=== PATIENT | female | born 1970 | race Caucasian/White ===

== ENCOUNTER → 2016-08-25 | Outpatient (REF) | payer OTHER ==
[~2016-08-25] MED LIST: /DULO30CA PO; /QUET10TA OR; /VERA40TA; ALPR0.5T3 PO; AMBI6.25 PO; ANTA500C PO; ASPI81TA83; BACL10TA2 PO; CALC1CAP8 PO; CALCTAB22; CIPR500T19 PO; COLA100C2; DIVA500T9 PO; EFFE150C; EFFE150C OR; EXCETAB OR; FLUO20CA9 PO; FURO20TA2 OR; HYDR1TAB97 PO; IBUP600T; IMIT100T; IMIT100T OR; IMIT6INJ SC; LACOSAMIDE PO; LIDO1OIN2 TOP; LIDO5DIS EX; LUPRON; LYRI150C PO; META800T82 PO; MINI2CAP PO; MULTCAP11 PO; MYLASUS2 PO; NEUR600T; NORT25CA2 OR; OXYC1SOL PO; OYST500T PO; PANT40TA2 PO; PERC5TAB8; PREG50CA PO; PREM0.9T; RITA20TA OR; ROBA750T4 PO; SIMV20TA2; SUCR1SUS PO; SUMA100T2 PO; SUMA4INJ3 SC; TIZA4CAP3 PO; TOPI100T; TOPI200T; TOPI200T OR; VERA80TA; VICO5TAB OR; VIT D 2000 OR; ZOFR20TA PO; [UNRECOGNIZED DRUG - OTHER]; b 12 PO
== END ==
LOC: M LABNEURO 17:42
PROVIDERS: ATTEND Physician Assistant Medical
DX: R63.5 Abnormal weight gain (principal)

== ENCOUNTER → 2020-04-30 | Outpatient (CLI) | payer OTHER ==
[~2020-04-30] MED LIST changes: -/DULO30CA PO; -/QUET10TA OR; -/VERA40TA; -ANTA500C PO; +CALC1CHW3 PO; +CYMB1CAP5 PO; +FLUO20CA22 PO; -FLUO20CA9 PO; +HYDR-3713 PO; -HYDR1TAB97 PO; +META1TAB22 PO; -META800T82 PO; +MYLASUS16 PO; -MYLASUS2 PO; -OXYC1SOL PO; +OXYC1SOL3 PO; -PANT40TA2 PO; +PANT40TA29 PO; +SERO1TAB OR; +SUCR1ORA PO; -SUCR1SUS PO; +TIZA4CAP PO; -TIZA4CAP3 PO; +VERA1TAB23; -ZOFR20TA PO; +ZOFR4TAB16 PO
--- NOTE | 2020-05-21 13:38 | REP ---
LEFT DIGIT CLINICAL: Pain at the base of the thumb. TECHNIQUE: AP, lateral, and bilateral oblique views of the left first digit. FINDINGS: Early arthritic changes at the base of the first metacarpal bone and metacarpophalangeal joint includes cortical irregularity and subchondral sclerosis. Very subtle early subluxation cannot be excluded. No acute fracture or dislocation. IMPRESSION: Early arthritic changes at the first metacarpophalangeal joint. EDUARDA
== END ==
LOC: M WUC 10:27
PROVIDERS: ATTEND Physician Assistant
DX: M18.12 Unilateral primary osteoarthritis of first carpometacarpal joint, left hand (principal); M79.645 Pain in left finger(s)